=== PATIENT | male | born 1995 | race Caucasian/White ===

== ENCOUNTER 2020-02-20 06:50 | Observation (INO) | payer BC, OTHER ==
[2020-02-20] MEDS ORDERED: DIPH,PERTUS(ACELL)TETVAC-LF 0.5 ML VIAL IM ONE (07:08)
[2020-02-20] MEDS ORDERED: SODIUM CHLORIDE 0.9% 1,000 ML IV STA (07:08)
[2020-02-20] MEDS ORDERED: KETOROLAC 30 MG/ML 1 ML VIAL IVP STA (07:09)
[2020-02-20 07:11] LABS: Glucose,Whole Blood 116 mg/dL (75-99)
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
[2020-02-20 07:25] LABS: Basophils # (A) 0.1 k/uL (0-0.2); Basophils % (A) 1 %; Eosinophils # (A) 0.3 k/uL (0-0.7); Eosinophils % (A) 2 %; HCT 47.2 % (39.0-53.0); HGB 16.1 gm/dL (13.0-17.5); Lymphocytes # (A) 2.5 k/uL (1.0-4.8); Lymphocytes % (A) 22 %; MCH 31.2 pg (25.0-35.0); MCHC 34.2 g/dL (31.0-37.0); MCV 91.4 fL (80.0-100.0); Mean Platelet Volume 7.4; Monocytes # (A) 0.7 k/uL (0-1.0); Monocytes % (A) 6 %; Neutrophils # (A) 7.7 k/uL (1.3-7.7); Neutrophils % (A) 67 %; Platelet Count 209 k/uL (150-450); RBC 5.16 m/uL (4.30-5.90); RDW 12.2 % (11.5-15.5); WBC 11.6 k/uL (3.8-10.6)
[2020-02-20 07:33] LABS: ALT 21 U/L (4-49); AST 27 U/L (17-59); African American GFR (CKD) >90 (>60 ml/min/1.73 sqM); Albumin 4.6 g/dL (3.5-5.0); Alcohol <10 mg/dL; Alkaline Phosphatase 70 U/L (38-126); Amylase 67 U/L (30-110); Anion Gap 10 mmol/L; Blood Urea Nitrogen 17 mg/dL (9-20); Calcium 9.8 mg/dL (8.4-10.2); Carbon Dioxide 23 mmol/L (22-30); Chloride 107 mmol/L (98-107); Glucose 97 mg/dL (74-99); Non-African American GFR(CKD) 81 (>60 ml/min/1.73 sqM); Potassium 3.9 mmol/L (3.5-5.1); Sodium 140 mmol/L (137-145); Total Bilirubin 1.2 mg/dL (0.2-1.3); Total Protein 7.5 g/dL (6.3-8.2)
[2020-02-20 07:34] LABS: Partial Thromboplastin Time 24.9 sec (22.0-30.0); Prothrombin Time 10.1 sec (9.0-12.0)
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
[2020-02-20 07:55] LABS: Creatine Kinase 259 U/L (55-170)
[2020-02-20 08:05] LABS: Appearance,Urine Clear (Clear); Bilirubin,Urine Negative (Negative); Blood,Urine Negative (Negative); Color,Urine Yellow; Glucose,Urine (UA) Negative (Negative); Ketones,Urine Negative (Negative); Leukocyte Esterase,Urine Trace (Negative); Mucus,Urine Rare /hpf; Nitrite,Urine Negative (Negative); PH, Urine 6.5 (5.0-8.0); Protein,Urine 1+ (Negative); RBC,Urine <1 /hpf (0-5); Specific Gravity,Urine 1.019 (1.001-1.035); Urobilinogen,Urine <2.0 mg/dL (<2.0); WBC,Urine 3 /hpf (0-5)
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
[2020-02-20 08:08] LABS: Creatine Kinase MB 1.5 ng/mL (0.0-2.4); Troponin I <0.012 ng/mL (0.000-0.034)
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
[2020-02-20 08:21] LABS: Amphetamine Screen,Urine Not Detected (NotDetected); Barbiturate Screen,Urine Not Detected (NotDetected); Benzodiazepines Screen,Urine Not Detected (NotDetected); Cocaine Screen,Urine Not Detected (NotDetected); Methadone Screen, Urine Not Detected (NotDetected); Opiate Screen,Urine Not Detected (NotDetected); Oxycodone Screen, Urine Not Detected (NotDetected); Phencyclidine Screen,Urine Not Detected (NotDetected); Tricyclic Antidepressant,Urine Not Detected (NotDetected); Urn Cannabinoid Scrn Detected (NotDetected)
[2020-02-20] MEDS ORDERED: HYDROcodone/APAP 5-325MG 1 EACH TAB PO STA (08:29)
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
[2020-02-20] MEDS ORDERED: NALOXONE 0.4 MG/ML 1 ML VIAL IV PRN (09:03)
[2020-02-20] MEDS ORDERED: ACETAMINOPHEN TAB 325 MG TAB PO PRN (09:03)
[2020-02-20] MEDS ORDERED: ONDANSETRON 4 MG/2 ML VIAL IVP PRN (09:03)
[2020-02-20] MEDS ORDERED: MORPHINE SULFATE 4 MG/ML SYRINGE IVP STA (09:23)
[2020-02-20] MEDS: SODIUM CHLORIDE 0.9% 1,000 ML IV SCH (09:36)
[2020-02-20] MEDS ORDERED: BACITRACIN 500 UNIT/GM OINT 28.4 GM TUBE TOPICAL ONE (11:45)
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
[2020-02-20] MEDS: oxyCODONE-APAP 5-325MG 1 EACH TAB PO PRN (14:08)
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
[2020-02-20] MEDS: MORPHINE SULFATE 4 MG/ML SYRINGE IVP PRN ×2 (15:32→19:44)
[2020-02-21] MEDS: MORPHINE SULFATE 4 MG/ML SYRINGE IVP PRN ×2 (00:04→08:51)
[2020-02-21 01:37] VITALS: RESP 16
[2020-02-21] MEDS: oxyCODONE-APAP 5-325MG 1 EACH TAB PO PRN ×3 (02:27→13:16)
[2020-02-21] MEDS: SODIUM CHLORIDE 0.9% 1,000 ML IV SCH (07:12)
[2020-02-21 07:31] VITALS: BP 132/80; PULSE 107; TEMP 98.3
[2020-02-21] MEDS ORDERED: BACITRACIN 500 UNIT/GM OINT 28.4 GM TUBE TOPICAL SCH (09:00)
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
== END 2020-02-21 13:55 | disposition home or self-care (01) ==
LOC: EC 06:50 → 4SSUR 09:03
PROVIDERS: ADMIT Surgery; ATTEND Surgery
DX: S82.52XB Displaced fracture of medial malleolus of left tibia, initial encounter for open fracture type I or II (principal); S82.62XB Displaced fracture of lateral malleolus of left fibula, initial encounter for open fracture type I or II; M25.512 Pain in left shoulder; M54.9 Dorsalgia, unspecified; S12.100A Unspecified displaced fracture of second cervical vertebra, initial encounter for closed fracture; S41.002A Unspecified open wound of left shoulder, initial encounter; S40.819A Abrasion of unspecified upper arm, initial encounter; S80.819A Abrasion, unspecified lower leg, initial encounter; R00.0 Tachycardia, unspecified; M25.522 Pain in left elbow; M25.562 Pain in left knee; S90.512A Abrasion, left ankle, initial encounter; S90.511A Abrasion, right ankle, initial encounter; S80.212A Abrasion, left knee, initial encounter; S60.512A Abrasion of left hand, initial encounter; S50.812A Abrasion of left forearm, initial encounter; S40.212A Abrasion of left shoulder, initial encounter; G89.29 Other chronic pain; M54.2 Cervicalgia; V86.55XA Driver of 3- or 4- wheeled all-terrain vehicle (ATV) injured in nontraffic accident, initial encounter; Y93.I9 Activity, other involving external motion; Z91.048 Other nonmedicinal substance allergy status; Z79.891 Long term (current) use of opiate analgesic; Z11.59 Encounter for screening for other viral diseases; F17.200 Nicotine dependence, unspecified, uncomplicated; Z80.0 Family history of malignant neoplasm of digestive organs; Z82.49 Family history of ischemic heart disease and other diseases of the circulatory system
CPT/HCPCS: 29515; 96376 ×2; 90471; 96361; 96374; 96375; 99285; 36415; 93005; 86900; 86901; 80053; 82150; 82550; 82553; 83605; 83690; 84484; 85025; 85610; 85730; 86850; 81001; 80306; 80320; 87635; 72170; 73030; 73080; 73562; 73610; 71045; 72125; 70450; 71260; 74177; 73700; 90715; G0378 ×2; J2270 ×2; J2405; J1885; Q9967

== ENCOUNTER 2023-05-15 23:37 | Emergency (ER) | payer OTHER ==
[2023-05-15 23:51] VITALS: TEMP 99
[2023-05-16] MEDS ORDERED: IBUPROFEN 600 MG TAB PO STA (00:14)
[2023-05-16] MEDS ORDERED: LIDOCAINE 5% PATCH TOPICAL ONE (00:14)
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
[2023-05-16 04:05] VITALS: BP 124/76; PULSE 78; RESP 18
--- NOTE | 2023-05-16 07:15 | XR ---
EXAMINATION TYPE: XR lumbar spine 2 or 3V DATE OF EXAM: 05/16/2023 CLINICAL HISTORY: pain TECHNIQUE: Three views of the lumbar spine are submitted. COMPARISON: None. FINDINGS: There are 5 lumbar type vertebral bodies identified. The lumbar spine shows satisfactory alignment w ithout evidence of acute fracture or dislocation. Vertebral body heights are within normal limits. Disc spaces are within normal limits. The overlying soft tissue appears unremarkable. IMPRESSION: No acute fracture or dislocation is seen in the lumbar spine. ICD 10 NO FRACTURE, INITIAL EVALUATION
== END 2023-05-16 04:02 | disposition home or self-care (01) ==
LOC: EC 23:37
DX: S60.511A Abrasion of right hand, initial encounter (principal); S60.512A Abrasion of left hand, initial encounter; S50.812A Abrasion of left forearm, initial encounter; S50.811A Abrasion of right forearm, initial encounter; S70.312A Abrasion, left thigh, initial encounter; S70.311A Abrasion, right thigh, initial encounter; F12.90 Cannabis use, unspecified, uncomplicated; Z91.09 Other allergy status, other than to drugs and biological substances; V67.5XXA Driver of heavy transport vehicle injured in collision with fixed or stationary object in traffic accident, initial encounter; Y92.410 Unspecified street and highway as the place of occurrence of the external cause
CPT/HCPCS: 70450; 72100; 72125; 99284